=== PATIENT | female | born 1955 | race African-American/Black ===

== ENCOUNTER 2017-09-23 16:38 | Emergency (ER) | payer OTHER ==
[~2017-09-23] VITALS: Ht 154.9 cm; Wt 48.5 kg
[~2017-09-23 16:38] MED LIST: ADVAIR 250-501 EACH INH; AMLODIPINE BESYL5 MG PO; ASPIRIN EC81 MG PO; ATORVASTATIN CA40 MG PO; CIPRO500 MG PO; CLONAZEPAM1 MG PO; CLOPIDOGREL75 MG PO; CYMBALTA20 MG PO; ENALAPRIL MALEA20 MG PO; GLIPIZIDE10 MG PO; HYDROCHLOROTHIA25 MG PO; KLONOPIN1 MG PO; LEVAQUIN500 MG PO; LYRICA50 MG PO; METOPROLOL TART50 MG PO; NEXIUM40 MG PO; NORCO 10-325 T1 EACH PEG; OPANA10 MG PO; PRAVACHOL40 MG PO; PROVENTIL HFA6.7 GM; PYRIDIUM200 MG PO; SOMA350 MG PO; SPIRIVA18 MCG INH; SYMBICORT 16010.2 GM INH; TOPROL XL25 MG PO; TRAZODONE HCL50 MG PO; ULTRAM 50MG50 MG PO; ULTRAM50 MG PO; XOPENEX HFA15 GM
--- NOTE | 2017-09-23 17:36 | Diagnostic Imaging Report ---
PROCEDURE: Frontal and lateral views of the chest. COMPARISON: Patients [facility], DX, CHEST SINGLE (PORTABLE), 07/21/2017, 21:01. INDICATIONS: FLU LIKE. FINDINGS: Lines/tubes: None. Lungs: Bilateral perihilar peribronchial thickening and perihilar streak densities suggestive of a viral infection. No focal consolidation. Pleura: There is no pleural effusion or pneumothorax. Heart and mediastinum: The heart and the mediastinum are normal. Mild calcification of the aortic arch. Bones: No acute bony abnormality. IMPRESSION: 1. Bilateral perihilar peribronchial thickening and perihilar streak densities suggestive of a viral infection. No focal consolidation. Blas Marina M.D. Dictated by: Blsa Marina M.D. on 09/23/2017 at 17:45 Electronically approved by: Blas Marina M.D. on 09/23/2017 at 17:45
[2017-09-23] MEDS ORDERED: LORAZEPAM 1 MG TAB PO ONE (18:45)
[2017-09-23] MEDS ORDERED: LORAZEPAM 0.5 MG TAB PO ONE (19:00)
== END 2017-09-23 19:45 | disposition short-term general hospital (02) ==
LOC: ER 16:38
DX: R10.13 Epigastric pain (principal)
CPT/HCPCS: 71020; 87400

== ENCOUNTER 2018-06-12 12:22 | Emergency (ER) | payer MEDICARE, OTHER ==
[~2018-06-12] VITALS: Ht 154.9 cm; Wt 56.7 kg
[2018-06-12] MEDS ORDERED: SODIUM CHLORIDE 0.9% 1000ML 1,000 ML IV STA (12:37)
[2018-06-12] MEDS ORDERED: ASPIRIN 81 MG CHEW TAB PO ONE (12:45)
[2018-06-12] MEDS ORDERED: LORAZEPAM INJ 2 MG/ML VIAL IV ONE (13:00)
[2018-06-12 13:06] LABS: BASOPHILS % 0.4 % (0.0-1.0); EOSINOPHILS # (AUTO) 0.1 (0.0-0.4); EOSINOPHILS % 2.4 % (0.0-6.0); HEMATOCRIT 40.7 % (34.2-44.1); HEMOGLOBIN 12.4 g/dL (12.0-16.0); LYMPHOCYTES # (AUTO) 2.6 (1.0-3.2); LYMPHOCYTES % 47.1 % (18.0-39.1); MEAN CORPUSCULAR HEMOGLOBIN 26.9 pg (28-32); MEAN CORPUSCULAR HGB CONC 30.5 g/dL (31-35); MEAN CORPUSCULAR VOLUME 88.3 fL (81-99); MONOCYTES # (AUTO) 0.4 (0.2-0.8); MONOCYTES % 6.5 % (4.4-11.3); NEUTROPHILS # (AUTO) 2.4 (2.1-6.9); NEUTROPHILS % 43.4 % (38.7-80.0); PLATELET COUNT 152 x10e3/uL (140-360); RED BLOOD COUNT 4.61 x10e6/uL (3.6-5.1); RED CELL DISTRIBUTION WIDTH 13.3 % (11.7-14.4)
[2018-06-12] MEDS ORDERED: IPRATROPIUM BROMIDE 0.02% 2.5 ML NEB NEB ONE (13:15)
[2018-06-12] MEDS ORDERED: ALBUTEROL SULF 0.083% NEB SOLN 3 ML NEB NEB ONE (13:15)
--- NOTE | 2018-06-12 13:26 | Diagnostic Imaging Report ---
EXAM: XR CHEST 1 VIEW DATE: 06/12/2018 12:37 PM INDICATION: Shortness of breath COMPARISON: 07/21/2017, no report available FINDINGS: Lines and Tubes: None Heart and Mediastinum: No acute cardiomediastinal findings. Lungs and Pleura: No significant pleural effusion, pneumothorax, or focal consolidation. Nipple shadows incidentally noted. Bones and Soft Tissues: No acute findings. IMPRESSION: 1. No acute cardiopulmonary findings. Signed by: Dr. Michael Koehler MD on 06/12/2018 1:23 PM
[2018-06-12 13:41] LABS: ABG PH 7.39 (7.31-7.41)
[2018-06-12 13:42] LABS: ABG HCO3 32 mmol/L (23-28); ABG PCO2 52 mmHg (41-51); ABG PO2 93 mmHg (80-105)
[2018-06-12 14:02] LABS: ALANINE AMINOTRANSFERASE 20 IU/L (0-55); ALBUMIN 3.9 g/dL (3.5-5.0); ALBUMIN/GLOBULIN RATIO 1.1 (0.8-2.0); ALKALINE PHOSPHATASE 67 IU/L (40-150); ANION GAP 14.7 mmol/L (8-16); BLOOD UREA NITROGEN 22 mg/dL (7-26); BUN/CREATININE RATIO 23 (6-25); CALCIUM 9.8 mg/dL (8.4-10.2); CARBON DIOXIDE 31 mmol/L (22-29); CHLORIDE 101 mmol/L (98-107); CREATINE KINASE 73 IU/L (29-168); CREATININE, SERUM 0.96 mg/dL (0.57-1.11); EST GLOMERULAR FILTRATION RATE > 60 ML/MIN (60-); GLUCOSE 233 mg/dL (74-118); LIPASE 70 U/L (8-78); MAGNESIUM 1.6 MG/DL (1.3-2.1); POTASSIUM 3.7 mmol/L (3.5-5.1); SODIUM 143 mmol/L (136-145)
[2018-06-12 14:12] LABS: INR 0.87; PROTHROMBIN TIME 12.6 seconds (11.9-14.5)
[2018-06-12 14:13] LABS: PARTIAL THROMBOPLASTIN TIME 20.8 seconds (23.8-35.5)
[2018-06-12 14:24] LABS: THYROID STIMULATING HORMONE 0.465 uIU/mL (0.350-4.940)
[2018-06-12 14:36] LABS: B-TYPE NATRIURETIC PEPTIDE2 47.9 pg/mL (0-100)
[2018-06-12] MEDS ORDERED: METHYLPREDNISOLONE SOD SUCC 125 MG/2ML VIAL ONE (14:57)
[2018-06-12 15:26] VITALS: BP 122/74
[2018-06-12] MEDS ORDERED: METHYLPREDNISOLONE SOD SUCC 125 MG/2ML VIAL IV ONE (15:30)
--- OUTSIDE RECORDS SUMMARY | 2018-06-14 14:04 | XMS REPORT | Clinical Summary ---
Author Author [facility] Organization [facility] Address Unknown Phone Unavailable Care Team Providers Care Glue Drier Operator Name Role Phone Adrienne Chang MD PCP Allergies Active Allergy Reactions Severity Noted Date Comments Amoxicillin Anaphylaxis High 02/04/2018 Current Medications No known medications Active Problems Not on file Encounters Date Type Specialty Care Team Description 02/04/2018 Emergency Emergency Medicine Kalen Sierra Cough (Primary Dx); MD Aram Other chronic back pain; Ghassan Morales MD Hypotension, unspecified hypotension type; Panic attack; Coronary arteriosclerosis due to lipid rich plaque; Chronic obstructive pulmonary disease, unspecified COPD type; Dyslipidemia; Chronic hypertension; Multiple sclerosis; Type 2 diabetes mellitus with other specified complication, without long-term current use of insulin; Shortness of breath; Azotemia after 06/11/2017 Social History Tobacco Use Types Packs/Day Years Used Date Former Smoker Quit: 01/04/2015 Alcohol Use Drinks/Week oz/Week Comments Yes occasional Sex Assigned at Date Recorded Not on file Last Filed Vital Signs Vital Sign Reading Time Taken Blood Pressure 108/68 02/04/2018 5:15 PM CDT Pulse 80 02/04/2018 5:15 PM CDT Temperature 36.8 C (98.3 F) 02/04/2018 11:10 AM CDT Respiratory Rate 20 02/04/2018 5:15 PM CDT Oxygen Saturation 100% 02/04/2018 5:15 PM CDT Inhaled Oxygen - - Concentration Weight - - Height 154.9 cm (5' 1") 02/04/2018 11:13 AM CDT Body Mass Index - - Plan of Treatment Health Maintenance Due Date Last Done Comments DIABETIC FOOT EXAM 1963 DIABETIC RETINAL EYE EXAM 1963 URINE MICROALBUMIN 1963 CERVICAL CANCER SCREENING 1974 BREAST CANCER SCREENING 2003 COLON CANCER SCREENING 2003 SHINGRIX VACCINE (#1) 2003 ZOSTER VACCINE 2013 INFLUENZA VACCINE 03/30/2018 PNEUMOCOCCAL 2018 POLYSACCHARIDE VACCINE AGE 65 AND OVER PNEUMOCOCCAL-13 2018 Procedures Procedure Name Priority Date/Time Associated Diagnosis Comments ECG 12-LEAD STAT 02/04/2018 Results for this 2:39 PM CDT procedure are in the results section. ECG ED PRELIMINARY Routine 02/04/2018 Results for this INTERPRETATION 12:39 PM CDT procedure are in the results section. ZZESTIMATED GFR STAT 02/04/2018 Results for this 12:20 PM CDT procedure are in the results section. B NATRIURETIC PEPTIDE STAT 02/04/2018 Results for this 12:20 PM CDT procedure are in the results section. TROPONIN STAT 02/04/2018 Results for this 12:20 PM CDT procedure are in the results section. COMPREHENSIVE METABOLIC STAT 02/04/2018 Results for this PANEL 12:20 PM CDT procedure are in the results section. HC COMPLETE BLD COUNT STAT 02/04/2018 Results for this W/AUTO DIFF 12:20 PM CDT procedure are in the results section. XR CHEST 2 VW STAT 02/04/2018 Results for this 11:56 AM CDT procedure are in the results section. after 06/11/2017 Results * ECG 12 lead (02/04/2018 2:39 PM) Ventricular rate 65 [facility] Atrial rate 65 [facility] DE interval 154 [facility] QRSD interval 100 [facility] QT interval 400 [facility] QTC interval 416 [facility] P axis 1 81 [facility] QRS axis 1 78 [facility] T wave axis 262 [facility] EKG impression Normal sinus rhythm-ST & T [facility] wave abnormality, consider inferior ischemia-ST & T wave abnormality, consider anterolateral ischemia-Abnormal ECG-No previous ECGs available- Performing Organization Address City/State/Zipcode Phone Number [facility] M[facility] [address] [place] [address] * ECG ED Preliminary Interpretation - NOT AN ORDER (02/04/2018 12:39 PM) Narrative Performed At Ghassan Morales MD 02/10/20188:43 AM ECG ED Preliminary Interpretation - Not an Order Performed by: GHASSAN MORALES Authorized by: GHASSAN MORALES ECG reviewed by ED Physician in the absence of a vendor representatives: yes Interpretation: Interpretation: abnormal Rate: ECG rate:65 ECG rate assessment: normal Rhythm: Rhythm: sinus rhythm QRS: QRS axis:Normal QRS intervals:Normal ST segments: ST segments:Normal Comments: twi * Estimated GFR (02/04/2018 12:20 PM) GFR Non Af Amer 72 mL/min/1.73 m2 [facility] DEPARTMENT OF PATHOLOGY AND GENOMIC MEDICINE GFR Af Amer 87 mL/min/1.73 m2 [facility] DEPARTMENT OF Comment: PATHOLOGY AND Chronic kidney disease: <60 GENOMIC MEDICINE mL/min/1.73m2 Kidney failure: <15 mL/min/1.73m2 The estimated GFR is calculated from the IDMS-traceable Modification of Diet in Renal Disease Equation. The accuracy of the calculation is poor when the creatinine is normal. Calculated values >90 mL/min/1.73m2 are not reported. This equation has not been validated in children (<18 years), women, the elderly (>70 years), or ethnic groups other than Caucasians and Americans. Specimen Plasma specimen Performing Organization Address City/[facility]/[place] [address] PATHOLOGY AND [employer] MEDICINE * Troponin (02/04/2018 12:20 PM) Troponin <0.30 0.00 - 0.30 ng/mL [facility] DEPARTMENT OF Comment: PATHOLOGY AND 0.30 - 1.49 GENOMIC MEDICINE ng/mlMay indicate increased risk of acute coronary syndrome. >=1.5 ng/ml Consistent with acute myocardial infarction. The diagnostic value of a single normal or non-diagnostic result is questionable.Serial samples at 2-6 hour intervals are required to rule out acute myocardial injury. Specimen Plasma specimen Performing Organization Address City/State/Zipcode Phone Number [place] [phone] PATHOLOGY AND GENOMIC MEDICINE * CBC with platelet and differential (02/04/2018 12:20 PM) WBC 9.00 4.50 - 11.00 k/uL [facility] DEPARTMENT OF PATHOLOGY AND GENOMIC MEDICINE RBC 4.97 4.20 - 5.50 m/uL [facility] DEPARTMENT OF PATHOLOGY AND GENOMIC MEDICINE HGB 13.7 12.0 - 16.0 g/dL [facility] DEPARTMENT OF PATHOLOGY AND GENOMIC MEDICINE HCT 44.7 37.0 - 47.0 % [facility] DEPARTMENT OF PATHOLOGY AND GENOMIC MEDICINE MCV 89.9 82.0 - 100.0 fL [facility] DEPARTMENT OF PATHOLOGY AND GENOMIC MEDICINE MCH 27.6 27.0 - 34.0 pg [facility] DEPARTMENT OF PATHOLOGY AND GENOMIC MEDICINE MCHC 30.6 (L) 31.0 - 37.0 g/dL [facility] DEPARTMENT OF PATHOLOGY AND GENOMIC MEDICINE RDW - SD 46.6 37.0 - 55.0 fL [facility] DEPARTMENT OF PATHOLOGY AND GENOMIC MEDICINE MPV 10.6 8.8 - 13.2 fL [facility] DEPARTMENT OF PATHOLOGY AND GENOMIC MEDICINE Platelet count 208 150 - 400 k/uL [facility] DEPARTMENT OF PATHOLOGY AND GENOMIC MEDICINE Nucleated RBC 0.00 /100 WBC [facility] DEPARTMENT OF PATHOLOGY AND GENOMIC MEDICINE Neutrophils 64.2 39.0 - 69.0 % [facility] DEPARTMENT OF PATHOLOGY AND GENOMIC MEDICINE Lymphocytes 24.7 (L) 25.0 - 45.0 % [facility] DEPARTMENT OF PATHOLOGY AND GENOMIC MEDICINE Monocytes 8.0 0.0 - 10.0 % [facility] DEPARTMENT OF PATHOLOGY AND GENOMIC MEDICINE Eosinophils 0.9 0.0 - 5.0 % [facility] DEPARTMENT OF PATHOLOGY AND GENOMIC MEDICINE Basophils 0.3 0.0 - 1.0 % [facility] DEPARTMENT OF PATHOLOGY AND GENOMIC MEDICINE Immature granulocytes 1.9 (H)Comment: "Immature 0.0 - 1.0 % [facility] DEPARTMENT OF granulocytes" (promyelocytes, PATHOLOGY AND myelocytes, metamyelocytes) GENOMIC MEDICINE Specimen Blood Performing Organization Address City/[facility]/[place] [address] PATHOLOGY AND GENOMIC MEDICINE * B natriuretic peptide (02/04/2018 12:20 PM) BNP 24 0 - 100 pg/mL [facility] DEPARTMENT OF PATHOLOGY AND GENOMIC MEDICINE Specimen Blood Performing Organization Address City/[facility]/[place] [address] PATHOLOGY AND [facility] * Comprehensive metabolic panel (02/04/2018 12:20 PM) Sodium 144 135 - 148 mEq/L [facility] DEPARTMENT OF PATHOLOGY AND GENOMIC MEDICINE Potassium 4.0 3.5 - 5.0 mEq/L [facility] DEPARTMENT OF PATHOLOGY AND GENOMIC MEDICINE Chloride 101 98 - 112 mEq/L [facility] DEPARTMENT OF PATHOLOGY AND GENOMIC MEDICINE CO2 31 24 - 31 mEq/L [facility] DEPARTMENT OF PATHOLOGY AND GENOMIC MEDICINE Anion gap 12@ANIO 7 - 15 mEq/L [facility] DEPARTMENT OF PATHOLOGY AND GENOMIC MEDICINE BUN 28 (H) 8 - 23 mg/dL [facility] DEPARTMENT OF PATHOLOGY AND GENOMIC MEDICINE Creatinine 0.8 0.5 - 0.9 mg/dL [facility] DEPARTMENT OF PATHOLOGY AND GENOMIC MEDICINE Glucose 114 (H) 65 - 99 mg/dL [facility] DEPARTMENT OF PATHOLOGY AND GENOMIC MEDICINE Calcium 9.7 8.8 - 10.2 mg/dL [facility] DEPARTMENT OF PATHOLOGY AND GENOMIC MEDICINE Protein 7.2 6.3 - 8.3 g/dL [facility] DEPARTMENT OF Comment: PATHOLOGY AND [employer] GENOMIC MEDICINE 4.6-7.0 g/dL 1 week 4.4-7.6 g/dL 7 months-1year 5.1-7.3 g/dL 1-2 years5.6-7 .5 g/dL >3 years6.0-8 .0 g/dL 18-150 6.3-8.3 g/dL Albumin 3.7 3.5 - 5.0 g/dL [facility] DEPARTMENT OF PATHOLOGY AND GENOMIC MEDICINE A/G ratio 1.1 0.7 - 3.8 [facility] DEPARTMENT OF PATHOLOGY AND GENOMIC MEDICINE Alkaline phosphatase 65 35 - 104 U/L [facility] DEPARTMENT OF PATHOLOGY AND GENOMIC MEDICINE AST 31 10 - 35 U/L [facility] DEPARTMENT OF PATHOLOGY AND GENOMIC MEDICINE ALT 22 5 - 50 U/L [facility] DEPARTMENT OF PATHOLOGY AND GENOMIC MEDICINE Total bilirubin <0.2 0.0 - 1.2 mg/dL [facility] DEPARTMENT OF PATHOLOGY AND GENOMIC MEDICINE Specimen Plasma specimen Performing Organization Address City/[facility] Phone Number [facility] DEPARTMENT OF [address] [place] [address] PATHOLOGY AND GENOMIC MEDICINE * XR Chest 2 Vw (02/04/2018 11:56 AM) Narrative Performed At EXAMINATION:XR CHEST 2 VW RADIANT CLINICAL HISTORY:Cough COMPARISON:None IMPRESSION: Heart, mediastinum and lung bautista are normal. [facility]-[id number] Procedure Note Interface, Radiology Results Incoming - 02/04/2018 12:04 PM CDT EXAMINATION: XR CHEST 2 VW CLINICAL HISTORY: Cough COMPARISON: None IMPRESSION: Heart, mediastinum and lung bautista are normal. [facility]-[id number] Performing Organization Address City/State/Zipcode Phone Number [facility] [address] [place] [address] after 06/11/2017 Insurance Payer Benefit Subscriber ID Type Phone Address Plan / Group [employer] xxxxxxxxx HMO [employer] [place]
--- OUTSIDE RECORDS SUMMARY | 2018-06-14 14:05 | XMS REPORT ---
Author Author [facility] Address Unknown Phone Unavailable Care Team Providers Care Psychology Department Chair Name Role Phone Estiven MILLER Unavailable Unavailable Zonia AZEVEDO Unavailable Unavailable Chalo DAILEY Unavailable Unavailable NATALY HOUSTON Unavailable Unavailable Payers Payer Name Policy Type Policy Number Effective Date Expiration Date Problems This patient has no known problems. Allergies, Adverse Reactions, Alerts Allergy Name Allergy Type Status Severity Reaction(s) Onset Date Inactive Date Treating Clinician Comments amoxicillin DA Active U 2017-02-13 00:00:00 Medications This patient has no known medications. Results Test Description Test Time Test Comments Text Results Atomic Results Result Comments CHEST SINGLE (PORTABLE) 2018-06-12 13:22:00 [place] [address] Patient Name: VIRIDIANA ZAMBRANO MR #: [id number] : 1955 Age/Sex: 63/F Req #: [id number] Adm Physician: Ordered by: PIEDAD SPRINGER [employer] CONSULTANT Report #: [id number] Location: ER Room/Bed: Procedure: [id number] DX/CHEST SINGLE (PORTABLE) Exam Date: 06/12/18 Exam Time: 1204 REPORT STATUS: Signed EXAM: XR CHEST 1 VIEW DATE: 06/12/2018 12:37 PM INDICATION: Shortness of breath COMPARISON: 07/21/2017, no report available FINDINGS: Lines and Tubes: None Heart and Mediastinum: No acute cardiomediastinal findings. Lungs and Pleura: No significant pleural effusion, pneumothorax, or focal consolidation. Nipple shadows incidentally noted. Bones and Soft Tissues: No acute findings. IMPRESSION: 1. No acute cardiopulmonary findings. Signed by: Dr. Claire Koehler MD on 06/12/2018 1:23 PM Dictated By: CLAIRE KOEHLER MD 132 Transcribed By: SUE on 06/12/18 1323 COPY TO: PIEDAD SPR[employer]SULTANT CHEST 2 VIEWS [place] [address] Patient Name: VIRIDIANA ZAMBRANO MR #: [id number] : 1955 Age/Sex: 62/F Req #: [id number] Adm Physician: Ordered by: WILVER AZEVEDO MD Report #: [id number] Location: ER Room/Bed: Procedure: [id number] DX/CHEST 2 VIEWS Exam Date: 09/23/17 Exam Time: 1650 REPORT STATUS: Signed PROCEDURE: Frontal and lateral views of the chest. COMPARISON: [facility], DX, CHEST SINGLE (PORTABLE), 07/21/2017, 21:01. INDICATIONS: FLU LIKE. FINDINGS: Lines/tubes: None. Lungs: Bilateral perihilar peribronchial thickening and perihilar streak densities suggestive of a viral infection. No focal consolidation. Pleura: There is no pleural effusion or pneumothorax. Heart and mediastinum: The heart and the mediastinum are normal. Mild calcification of the aortic arch. Bones: No acute bony abnormality. IMPRESSION: 1. Bilateral perihilar peribronchial thickening and perihilar streak densities suggestive of a viral infection. No focal consolidation. Blas Fry M.D. Dictated by: Blas Fry M.D. on 08/31 at 17:45 Electronically approved by: Blas Fry M.D. on 09/23/2017 at 17:45 Dictated By: BECKY FRY MD, MD 44 Transcribed By: LILI on 09/23/171744 COPY TO: WILVER AZEVEDO MD CHEST SINGLE (PORTABLE) [place] [address] Patient Name: VIRIDIANA ZAMBRANO MR #: [id number] : 1955 Age/Sex: 62/F Req #: [id number] Adm Physician: Ordered by: MARLENA DAILEY MD Report #: [id number] Location: ER Room/Bed: Procedure: [id number] DX/CHEST SINGLE (PORTABLE) Exam Date: 07/21/17 Exam Time: 2104 REPORT STATUS: Signed EXAM: CHEST SINGLE (PORTABLE), AP 1 view DATE: 07/21/2017 8:13 PM Time stamp on exam: 2101 hours INDICATION: Shortness of breath COMPARISON: AP view of the chest July 04, [address] of the chest July 05, 2017 FINDINGS: LINES/TUBES: None LUNGS: Emphysematous changes slight increased reticulation in the left lung base. Nodular density projected over the left lung base consistent with nipple shadow. PLEURA: No effusions or pneumothorax. HEART AND MEDIASTINUM: Normal size and contour. BONES AND SOFT TISSUES: No acute findings. IMPRESSION: Emphysematous changes with possible superimposed pneumonia in the left lung base. Signed by: Dr. Bella Montoya M.D. on 07/21/2017 9:41 PM Dictated By: BELLA MONTOYA MD 40 Transcribed By: SUE on 07/21/172140 COPY TO: MARLENA DAILEY MD MRI BRAIN WOW [place] [address] Patient Name: VIRIDIANA ZAMBRANO MR #: [id number] : 1955 Age/Sex: 62/F Req #: [id number] Adm Physician: NATALY HOUSTON MD Ordered by: ROBE WEST MD Report #: [id number] Location: MED/SURG Room/Bed: [facility] Procedure: [id number] MRI/MRI BRAIN WOW Exam Date: 07/06/17 Exam Time: 0930 REPORT STATUS: Signed EXAMINATION: MRI of the brain with and without contrast . HISTORY:Multiple sclerosis, MS flare. COMPARISON:None available TECHNIQUE: Axial precontrast T1. Postcontrast sagittal high resolution thin cuts T2-FLAIR CUBE with axial and coronal reconstructions, axial DWI, T2, and high resolution thin cuts sagittal T1 CUBE with axial and coronal reconstructions. Intravenous contrast: 5 mL Gadavist . Image quality: Motion artifact limits evaluation of most of the sequences, in spite of sedation. FINDINGS: T2 lesions: Too numerous and too confluent to account T2 lesions located in the callososeptal interface, periventricular, wooten radiata and centrum semiovale, discrete lesions are also seen in the right thalamus, bilateral lentiform nuclei, and large confluent lesion in the robert, small discrete bilateral cerebellar lesions.. T1 lesions: None Enhancing lesions: None Corpus callosum volume: Normal. Brain volume: Normal for age. Other: No mass, hydrocephalus, hemorrhage, acute or chronic infarcts IMPRESSION: Very suboptimal study due to motion. 1. Too confluent and too numerous to count demyelinating T2 lesions. Grossly no enhancing lesions. Comparison to prior studies is advised. 2. No disproportionate brain or callosal atrophy. Signed by: Dr. Latoya Guan M.D. on 07/06/2017 10:52 AM Dictated By: LATOYA GUAN MD 105 Transcribed By: SUE on 07/06/17 105 COPY TO: ROBE WEST MD MRI SPINE CERVICAL WOW [place] [address] Patient Name: VIRIDIANA ZAMBRANO MR #: [id number] : 1955 Age/Sex: 62/F Req #: [id number] [facility] Physician: NATALY HOUSTON MD Ordered by: ROBE WEST MD Report #: [id number] Location: MED/SURG Room/Bed: [facility] Procedure: [id number] MRI/MRI SPINE CERVICAL WOW Exam Date: 07/06/17 Exam Time: 0930 REPORT STATUS: Signed EXAMINATION: MRI of the cervical spine HISTORY: Multiple sclerosis , MS flare COMPARISON: None available TECHNIQUE: Pre-contrast sagittal T1, T2, STIR; axial T1, T2.. Post contrast axial and sagittal T1. Intravenous Contrast: 5 mL Gadavist. Image quality : Motion artifact limits evaluation of most of the sequences, particularly axial T2. FINDINGS: Spinal Cord: Spinal cord size: Normal T1 lesions: None Enhancing lesions: None T2 lesions: None Others: Vertebrae: Normal alignment, height, signal intensity. Discs: No significant degenerative changes. Craniocervical junction: Normal. IMPRESSION: Suboptimal study due to motion, grossly no cervical spinal cord demyelinating T2 lesions. Comparison to prior studies is advised. Signed by: Dr. Latoya Guan M.D. on 07/06/2017 10:54 AM Dictated By: LATOAY GUAN MD 105 Transcribed By: SUE on 07/06/17 105 COPY TO: ROBE WEST MD CT BRAIN WO [place] [address] Patient Name: VIRIDIANA ZAMBRANO MR #: [id number] : 1955 Age/Sex: 62/F Req #: [id number] Adm Physician: Ordered by: CLARKE PRECIADO MD Report #: [id number] Location: ER Room/Bed: Procedure: [id number] CT/CT BRAIN WO Exam Date: Exam Time: REPORT STATUS: Signed EXAMINATION: Head CT without contrast. HISTORY:Weakness in right lower extremity, known history of multiple sclerosis. COMPARISON:CT brain from 11/30/2016. TECHNIQUE: Multidetector axial images were obtained from the foramen magnum to the vertex without contrast. The images were reconstructed using brain and bone algorithms. Thin section brain images were reformatted into coronal and sagittal planes. Intravenous contrast: None IMAGE QUALITY: Acceptable. FINDINGS: Skull/scalp: No abnormality. Parenchyma: Nonspecific bilateral frontoparietal patchy white matter hypodensity are likely related to small vessel ischemic changes and/or in combination with demyelinating plaques, given history of multiple sclerosis. No acute hemorrhage, mass or acute major vascular territorial infarct. Arteries: Atherosclerotic calcification in bilateral carotid siphon. Dural sinuses: No abnormal density suggestive of thrombosis. Ventricles: No hydrocephalus or displacement. Extra-axial spaces: No abnormal density. Brain volume: Normal for age. Craniocervical junction: No mass, Chiari malformation, or basilar invagination. Sella: No mass. Paranasal/mastoid sinuses: Imaged portions unremarkable. IMPRESSION: No acute intracranial abnormality, particularly no acute hemorrhage, mass or acute major vascular territorial infarct. Moderate supratentorial white matter microvascular ischemic changes and/or in combination with demyelinating disease, with given history of known multiple sclerosis. For better evaluation of demyelinating plaques consider follow-up with MRI of the brain with and without contrast. Signed by: Dr. Bethany Her M.D. on 07/05/2017 1:39 AM Dictated By: BETHANY HER MD 8 Transcribed By: SUE on 07/05/17138 COPY TO: CLARKE PRECIADO MD CT CHEST W [place] [address] Patient Name: VIRIDIANA ZAMBRANO MR #: [id number] : 1955 Age/Sex: 62/F Req #: [id number] Adm Physician: Ordered by: CLARKE PRECIADO MD Report #: [id number] Location: ER Room/Bed: Procedure: [id number] CT/CT CHEST W Exam Date: Exam Time: REPORT STATUS: Signed EXAM: CT CHEST W DATE: 07/05/2017 12:43 AM INDICATION: Chest heaviness, shortness of breath COMPARISON: 01/06/2017 TECHNIQUE: Multidetector CT scanning of the chest was performed. Coronal and sagittal multiplanar reformations were obtained. IV Contrast: 100 ml Isovue 300 FINDINGS: LUNGS AND PLEURA: Severe underlying emphysema. New predominant upper lobe and to a lesser extent left lower lobe groundglass opacity. Mild left basilar atelectasis or scarring. Stable 3 mm right lower lobe irregular opacity on image 85. New nonspecific 2 mm right upper lobe nodule in image 54. No effusions or pneumothorax. HEART, MEDIASTINUM, VESSELS: No evidence of acute pulmonary artery embolism to the segmental level. Main pulmonary artery is normal in caliber, 2.4 cm. Normal heart size with severe coronary artery calcification. Moderate aortic atherosclerotic disease. No adenopathy. UPPER ABDOMEN: Splenic calcifications. Otherwise unremarkable. MUSCULOSKELETAL: No acute findings. IMPRESSION: 1. No acute pulmonary embolism. 2. Emphysema with new mild groundglass opacity which may be infectious or inflammatory. 3. Nonspecific less than 4 mm right lung nodules. Consider 12 month follow-up. Signed by: Dr Bassam Chauhan MD on 07/05/2017 1:41 AM Dictated By: BASSAM CHAUHAN MD 0 Transcribed By: SUE on 07/05/17140 COPY TO: CLARKE PRECIADO MD CHEST [facility] [place] [address] Patient Name: VIRIDIANA ZAMBRANO MR #: [id number] : 1955 Age/Sex: 62/F Req #: [id number] Adm Physician: Ordered by: CLARKE PRECIADO MD Report #: [id number] Location: Room/Bed: Procedure: [id number] DX/CHEST SINGLE (PORTABLE) Exam Date: 07/04/17 Exam Time: 5 REPORT STATUS: Signed CHEST SINGLE (PORTABLE), 07/04/2017 10:21 PM Technique: CHEST SINGLE (PORTABLE) Comparison: 03/01/2017 Clinical history: Chest pain, shortness of breath Findings: Stable appearance of the heart, mediastinum, lungs and pleural spaces. Hyperinflation suggesting underlying emphysema. Impression: 1. Lines/Tubes: None 2. No acute abnormality. Signed by: Dr Bassam Chauhan MD on 07/04/2017 11:48 PM Dictated By: BASSAM CHAUHAN MD 47 Transcribed By: SUE on 07/04/172347 COPY TO: CLARKE PRECIADO MD
--- OUTSIDE RECORDS SUMMARY | 2018-06-14 14:05 | XMS REPORT ---
Author Author Blaine Aguila Organization [employer] Address Unknown Phone Unavailable Care Team Providers Care Finish Specialist Name Role Phone Blaine Aguila CP Unavailable Encounters Encounter Location Date Unknown Bl[place], [place] Apr 01, 2015 Unknown Blaine [place], [place] May 03, 2015 Problems Problem Type Condition ICD-9 Code Onset Dates Condition Status Problem Chronic pain syndrome 338.4 Active Problem COPD - Chronic airway obstruction, not elsewhere classified 496 Active Problem Multiple sclerosis 340 Active Problem Mitral valve disorders 424.0 Active Problem PVD (Peripheral Vascular Disease) 443.9 Active Problem Aortic valve disorders 424.1 Active Problem Diabetes Mellitus Type II 250.02 Active Problem Hyperlipidemia 272.4 Active Problem Cardiac Arrhythmia 427.9 Active Problem Hypertension 401.9 Active Medications Medication Code System Code Instructions Start Date End Date Status Dosage Symbicort MEDISPAN [id number] 160-4.5 MCG/ACT Active INHALE 2 PUFFS BY MOUTH ONCE DAILY NEEDED Social History Social History Element Qualifiers Date Reported Smoking: . Are you a: Former Smoker Quit smoking in 01/10 but used to smoke 4-5 ppd for >35 years. March 12, 2015 Alcohol: . social March 12, 2015 Summary Purpose [employer]ClinicalWorks Submission
--- OUTSIDE RECORDS SUMMARY | 2018-06-14 14:05 | XMS REPORT ---
Author Author Blaine Aguila Organization [employer] Address Unknown Phone Unavailable Care Team Providers Care Speech Assistant Name Role Phone Blaine Aguila CP Unavailable Encounters Encounter Location Date Unknown [place] Apr 01, 2015 Problems Problem Type Condition ICD-9 Code [...] Date End Date Status Dosage Symbicort MEDISPAN [id number] 160-4.5 MCG/ACT Inhalation Once a day as needed Active 2 puffs Social History Social History Element Qualifiers Date Reported Smoking: . Are you a: Former Smoker Quit smoking in 01/10 but used to smoke 4-5 ppd for >35 years. March 12, 2015 Alcohol: . social March 12, 2015 Summary Purpose [employer]Works Submission
--- OUTSIDE RECORDS SUMMARY | 2018-06-14 14:05 | XMS REPORT | Summary of Care ---
Author Author EMERALD Azevedo, INOCENCIA Organization Unknown Address Unknown Phone Unavailable Care Team Providers Care Vehicle Dismantler Name Role Phone EMERALD Azevedo, INOCENCIA Unavailable Unavailable BOOKER Azevedo, RUDY Unavailable Unavailable LUIS Azevedo, CELIA Unavailable Unavailable BOOKER CODY MA, RUDY Unavailable Unavailable SAKINA CODY MA, GERMAN Beck Unavailable Unavailable Unavailable Unavailable Functional Status Name Dates Details Functional status health issues are not documented Status: Name Dates Details Cognitive status health issues are not documented Status: Problems Name Dates Details Arthritis (716.90, M19.90) Status: Active Multiple sclerosis (340, G35) Status: Active Peripheral neuropathy, hereditary/idiopathic (356.9, G60.9) Status: Active Urine incontinence (788.30, R32) Status: Active Numbness and tingling (782.0, R20.0) Status: Active Need for immunization against influenza (V04.81, Z23) Status: Active Encounter for diabetic foot exam (250.00, E11.9) Status: Active Acute UTI (599.0, N39.0) Status: Active Hiatal hernia (553.3, K44.9) Status: Active Other polyp of colon (211.3, K63.5) Status: Active Low back pain (724.2, M54.5) Status: Active Allergic rhinitis (477.9, J30.9) Status: Active Heart disease (429.9, I51.9) Status: Active Moderate aortic regurgitation (424.1, I35.1) Status: Active Esophageal dysmotility (530.5, K22.4) Status: Active Malnutrition (263.9, E46) Status: Active Abnormal blood chemistry (790.6, R79.9) Status: Active Screening mammogram, encounter for (V76.12, Z12.31) Status: Active Osteoporosis screening (V82.81, Z13.820) Status: Active Post-menopausal (V49.81, Z78.0) Status: Active Diabetes mellitus (250.00, E11.9) Status: Active Depression (311, F32.9) Status: Active Chronic pain (338.29, G89.29) Status: Active Anxiety (300.00, F41.9) Status: Active Dyslipidemia (272.4, E78.5) Status: Active Essential hypertension (401.9, I10) Status: Active Hiatal hernia with GERD (530.81, K21.9) Status: Active Pulmonary emphysema (492.8, J43.9) Status: Active Stomach ulcer (531.90, K25.9) Status: Active COPD, 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 * Refills: 0 Active NexIUM 40 MG Oral Packet * Refills: 0 Active Fluticasone Propionate 50 MCG/ACT Nasal Suspension USE 2 SPRAYS IN EACH NOSTRIL TWICE DAILY. * Quantity: 1 Refills: 6 INOCENCIA CORBIN M.D. * Start : 08-Oct-2015 Active 16 GM Bottle ProAir HFA 108 (90 Base) MCG/ACT Inhalation Aerosol Solution INHALE 1 TO 2 PUFFS EVERY 4 TO 6 HOURS NEEDED. * Quantity: 1 Refills: 6 INOCENCIA CORBIN M.D. * Start : 29-Oct-2015 Active 8.5 GM Inhaler Spiriva HandiHaler 18 MCG Inhalation Capsule INHALE THE CONTENTS OF 1 CAPSULE VIA INHALATION DEVICE EVERY DAY * Quantity: 90 Refills: 6 INOCENCIA CORBIN M.D. * Start : 19-Oct-2017 Active Albuterol Sulfate 0.63 MG/3ML Inhalation Nebulization Solution USE 1 UNIT DOSE IN NEBULIZER EVERY 4 TO 6 HOURS NEEDED. * Quantity: 1 Refills: 6 INOCENCIA CORBIN M.D. * Start : 29-Oct-2015 Active 3 ML Plas Cont (30 Plas Conts) Hydrocodone-Acetaminophen 10-325 MG Oral Tablet TAKE 1 TABLET EVERY 12 HOURS NEEDED as needed-pain clinic * Quantity: 28 Refills: 0 Active ClonazePAM 0.5 MG Oral Tablet TAKE 1 TABLET BY MOUTH EVERY 8 hours-pain clinic * Quantity: 30 Refills: 2 SATTAR M.D., RUDY * Start : 30-Jun-2016 Active AmLODIPine Besylate 10 MG Oral Tablet TAKE 1 TABLET BY MOUTH ONCE DAILY * Quantity: 90 Refills: 0 SATTAR M.D., RUDY * Start : 06-Oct-2016 Active Combivent Respimat 20-100 MCG/ACT Inhalation Aerosol Solution * Refills: 0 * Start : 08-Oct-2016 Active Cheratussin AC 100-10 MG/5ML Oral Syrup * Refills: 0 Active Symbicort 160-4.5 MCG/ACT Inhalation Aerosol INHALE 2 PUFFS TWICE DAILY. RINSE MOUTH AFTER USE. * Quantity: 1 Refills: 6 EMERALD M.D., PRO * Start : 08-Oct-2016 Active 6 GM Inhaler Montelukast Sodium 10 MG Oral Tablet TAKE 1 TABLET BY MOUTH AT BEDTIME * Quantity: 30 Refills: 6 EMERALD Alea.Hai.INOCENCIA * Start : 14-Dec-2017 Active GlipiZIDE 5 MG Oral Tablet TAKE 1/2 TABLET BY MOUTH EVERY MORNING BEFORE BREAKFAST * Quantity: 4 Refills: 0 SATTAR M.D., RUDY * Start : 20-May-2017 Active Atorvastatin Calcium 40 MG Oral Tablet TAKE 1 TABLET BY MOUTH EVERY NIGHT AT BEDTIME * Quantity: 7 Refills: 0 SATTAR M.D., RUDY * Start : 17-Jun-2017 Active Cymbalta 60 MG Oral Capsule Delayed Release Particles TAKE 1 CAPSULE DAILY-pain clinic * Refills: 0 SATTAR M.D., RUDY * Start : 15-Jan-2017 Active Neurontin 300 MG Oral Capsule TAKE 1 CAPSULE BY MOUTH twice TIMES DAILY-pain clinic * Refills: 0 SATTAR M.D., RUDY * Start : 04-Jun-2017 Active Sulindac 150 MG Oral Tablet TAKE 1 TABLET EVERY 12 HOURS WITH FOOD. pain clinic * Refills: 0 SATTAR M.D., RUDY * Start : 04-Jun-2017 Active Plaquenil 200 MG Oral Tablet TAKE 1 TABLET DAILY.pain clinic * Refills: 0 SATTAR M.D., RUDY * Start : 04-Jun-2017 Active Symbicort 160-4.5 MCG/ACT Inhalation Aerosol INHALE 2 PUFFS TWICE DAILY. RINSE MOUTH AFTER USE. * Quantity: 1 Refills: 3 CELIA SMITH M.D. * Start : 21-Sep-2017 Active 10.2 GM Inhaler Allergies and Adverse Reactions Name Dates Details Amoxicillin CAPS (Allergy) Reaction: Shortness of breath Status: Active Past Medical History Name Dates Details Personal history of asthma (V12.69, Z87.09) Status: Resolved Procedures Procedure Dates Details History of Complete Colonoscopy For Polyp Removal Completed Immunization Name Dates Details Pneumococcal polysaccharide vaccine, 23 valent Lot #: [id number] on: 27-Nov-2015 Fluzone 9 MCG/STRAIN CARLOS Lot #: [id number] on: 27-Nov-2015 Influenza Lot #: [id number] on: 06-Oct-2016 Fluzone Quadrivalent 0.5 ML Intramuscular Suspension Prefilled Syringe Lot #: [id number] on: 21-Sep-2017 Family History Name Dates Details Family history of Diabetes Mellitus (V18.0) Comments: Family History Status: Active Family history of Multiple Sclerosis Comments: Family History Status: Active Family history of Hypertension (V17.49) Comments: Family History Status: Active Family history of Reported Family History Of Heart Disease Comments: Family History Status: Active Family history of Stroke Syndrome (V17.1) Comments: Family History Status: Active Name Dates Details Family history of Diabetes Mellitus (V18.0) Status: Active Family history of Renal Failure Status: Active Name Dates Details Family history of Cardiac Failure Status: Active Social History Name Dates Details - Status: Name Dates Details Current every day smoker Current every day smoker Vital Signs Date Test Result Details No Known Vitals to report Results Date Description Value Details Results not documented Plan of Care Name Dates Details Planned Observations Planned Goals not documented Planned Encounters Appointment; CELIA SMITH M.D. On: 21-Dec-2017 13:00 Interventions Provided Medication Changes* Montelukast Sodium 10 MG Oral Tablet - Renew Instructions Name Dates Details Instructions not documented Encounters Appointment; INOCENCIA CORBIN M.D. Encounter Diagnosis: Problem not documented On: 24-Dec-2015 9:30 Appointment; INOCENCIA CORBIN M.D. Encounter Diagnosis: Problem not documented On: 31-Dec-2015 13:30 Appointment; LAURA MARTINI M.D. Encounter Diagnosis: Problem not documented On: 01-Jan-2016 12:15 Appointment; INOCENCIA CORBIN M.D. Encounter Diagnosis: Problem not documented On: 31-Mar-2016 9:30 Appointment; ELAINA LALA M.D. Encounter Diagnosis: Problem not documented On: 05-May-2016 14:15 Appointment; KHANG KAUR M.D. Encounter Diagnosis: Problem not documented On: 06-May-2016 11:30 Appointment; KHANG KAUR M.D. Encounter Diagnosis: Problem not documented On: 08-Jun-2016 12:00 Appointment; KHANG KAUR M.D. Encounter Diagnosis: Problem not documented On: 10-Aug-2016 10:00 [facility] Encounter Diagnosis: Problem not documented On: 21-Sep-2016 11:45 Appointment; RUDY CELESTE M.D. Encounter Diagnosis: Problem not documented On: 06-Oct-2016 13:30 Appointment; INOCENCIA CORBIN M.D. Encounter Diagnosis: Problem not documented On: 08-Oct-2016 11:00 Appointment; KHANG KAUR M.D. Encounter Diagnosis: Problem not documented On: 02-Nov-2016 8:30 Appointment; RUDY CELESTE M.D. Encounter Diagnosis: Problem not documented On: 03-Nov-2016 9:30 Appointment; BLOSSOM ALCAZAR M.D. Encounter Diagnosis: Problem not documented On: 18-Nov-2016 9:00 Appointment; KHANG KAUR M.D. Encounter Diagnosis: Problem not documented On: 01-Dec-2016 9:00 Appointment; JESSICA [address] Encounter Diagnosis: Problem not documented On: 01-Dec-2016 10:00 Appointment; INOCENCIA CORBIN M.D. Encounter Diagnosis: Problem not documented On: 08-Dec-2016 11:30 Appointment; INOCENCIA CORBIN M.D. Encounter Diagnosis: Problem not documented On: 17-Dec-2016 11:30 Appointment; JESSICA VEN[address] RD Encounter Diagnosis: Problem not documented On: 17-Dec-2016 13:00 Appointment; TIERRA ARNETT LCSW Encounter Diagnosis: Problem not documented On: 24-Dec-2016 11:00 Appointment; RUDY CELESTE M.D. Encounter Diagnosis: Problem not documented On: 15-Jan-2017 10:00 Appointment; TIERRA ARNETT LCSW Encounter Diagnosis: Problem not documented On: 18-Jan-2017 10:00 Appointment; TIERRA ARNETT LCSW Encounter Diagnosis: Problem not documented On: 08-Feb-2017 11:00 Appointment; KHANG KAUR M.D. Encounter Diagnosis: Problem not documented On: 16-Feb-2017 13:30 Appointment; RUDY CELESTE M.D. Encounter Diagnosis: Problem not documented On: 19-Apr-2017 9:30 Appointment; CELIA SMITH M.D. Encounter Diagnosis: Problem not documented On: 21-Sep-2017 13:20
--- OUTSIDE RECORDS SUMMARY | 2018-06-14 14:05 | XMS REPORT | Continuity of Care Document ---
Author Author [facility] Interface Address Unknown Phone Unavailable Problems Problem Status Onset Date Classification Date Reported Comments Source Chronic pain syndrome Active Problem 05/04/2015 Blaine Aguila COPD - Chronic airway obstruction, not elsewhere classified Active Problem 05/04/2015 Blaine Aguila Multiple sclerosis Active Problem 05/04/2015 Blaine Aguila Mitral valve disorders Active Problem 05/04/2015 Blaine Aguila PVD Active Problem 05/04/2015 Blaine Aguila Aortic valve disorders Active Problem 05/04/2015 Blaine Aguila Diabetes Mellitus Type II Active Problem 05/04/2015 Blaine Aguila Hyperlipidemia Active Problem 05/04/2015 Blaine Aguila Cardiac Arrhythmia Active Problem 05/04/2015 Blaine Aguila Hypertension Active Problem 05/04/2015 Blaine Aguila Other and unspecified hyperlipidemia Active Problem 09/21/2017 Blaine Aguila Essential hypertension Active Problem 09/21/2017 Blaine Aguila DM w/o complication type II, uncontrolled Active Problem 09/21/2017 Blaine Aguila Tricuspid regurgitation Active Problem 09/21/2017 Blaine Aguila Bowel perforation Active Problem 09/21/2017 Blaine Aguila Mitral regurgitation Active Problem 09/21/2017 Blaine Aguila Peripheral vascular disease Active Problem 09/21/2017 Blaine Aguila Cardiac arrhythmia Active Problem 09/21/2017 Blaine Aguila Acute bronchitis Active Problem 09/21/2017 Blaine Aguila DM Active Problem 09/21/2017 Blaine Aguila Carotid stenosis Active Problem 09/21/2017 Blaine Aguila Aortic regurgitation Active Problem 09/21/2017 Blaine Aguila Chest pain Active Problem 09/21/2017 Blaine Aguila Dyspnea on exertion Active Problem 09/21/2017 Blaine Aguila Multiple sclerosis Active Problem 09/21/2017 Blaine Aguila Dizziness Active Problem 09/21/2017 Blaine Aguila Chronic pain syndrome Active Problem 09/21/2017 Blaine Aguila COPD Active Problem 09/21/2017 Blaine Aguila Aortic valve disorder Active Problem 10/05/2015 Blaine Aguila Medications Medication Details Route Status Patient Instructions Ordering Provider Order Date Source Aspirin 1 tablet Orally Active 81 MG Orally Once a day Aguila 05/31/2015 Blaine Aguila Advair Diskus 1 puff Inhalation Active 250-50 MCG/DOSE Inhalation Twice a day Aguila 04/02/2014 Blaine Aguila Symbicort INHALE 2 PUFFS BY MOUTH ONCE DAILY NEEDED NA Active 160-4.5 MCG/ACT Mingo Aguila Amlodipine Besylate 1 tablet Orally Active 2.5 MG Orally Once a day Mingo Aguila Symbicort 2 puffs Inhalation Active 160-4.5 MCG/ACT Inhalation Twice a day Mingo Aguila Amlodipine Besylate TAKE 1 TABLET BY MOUTH DAILY NA Active 2.5 Mingo Aguila Enalapril Maleate 2 tablets Orally Active 20 MG Orally Once a day Mingo Aguila Spiriva HandiHaler 1 capsule Inhalation Active 18 MCG Inhalation Once a day Mingo Aguila Nexium 1 capsule Orally Active 40 MG Orally Once a day Mingo Aguila Clonazepam 1 tablet Orally Active 1 MG Orally Twice a day Mingo Aguila Pravastatin Sodium 1 tablet Orally Active 40 MG Orally Once a day Mingo Aguila Albuterol-Ipratropium 3 ml Inhalation Active 2.5-0.5 MG/3ML Inhalation Four times a day Mingo Aguila Benadryl Allergy 1 capsule as needed Orally Active 25 MG Orally every 6 hrs Mingo Aguila Metoprolol Succinate ER 1 tablet Orally Active 25 MG Orally Once a day Mingo Aguila Lyrica 1 capsule Orally Active 50 MG Orally Three times a day Mingo Aguila Allergies, Adverse Reactions, Alerts Substance Category Reaction Severity Reaction type Status Date Reported Comments Source Amoxicillin Adverse Reaction Info Not Available Adverse Reaction Active 09/21/2016 Blaine Aguila Immunizations Immunization Date Given Site Status Last Updated Comments Source Results Order Name Results Value Reference Range Date Interpretation Comments Source Vital Signs Vital Sign Value Date Comments Source Weight 103 09/21/2016 Blaine Aguila Heart Rate 78 09/21/2016 Blaine Aguila Diastolic (mm Hg) 82 09/21/2016 Blaine Aguila Systolic (mm Hg) 148 09/21/2016 Blaine Aguila Encounters Location Location Details Encounter Type Encounter Number Reason For Visit Attending Provider ADM Date DC Date Status Source Blaine Aguila [place], [place] Unknown [id number] 04/01/2015 04/01/2015 Blaine Aguila MD, [place] Unknown [id number] 04/01/2015 04/01/2015 Blaine Aguila MD, [place] Unknown [id number] 04/01/2015 04/01/2015 Blaine Aguila MD, [place] Unknown [id number] 05/03/2015 05/03/2015 Blaine Aguila MD, [place] Unknown [id number] 05/03/2015 05/03/2015 Blaine Aguila MD, PA Unknown [id number] 09/13/2015 09/13/2015 Blaine Aguila Procedures Procedure Code Date Perfomer Comments Source
--- OUTSIDE RECORDS SUMMARY | 2018-06-14 14:05 | XMS REPORT ---
Author Author Blaine Aguila Organization [employer] Address Unknown Phone Unavailable Care Team Providers Care Lead Consultant Name Role Phone Blaine Aguila CP Unavailable Encounters Encounter Location Date Unknown Blaine Aguila MD, [place] Apr 01, 2015 Unknown Blaine Aguila MD, PA May 03, 2015 Unknown Blaine Aguila MD, [place] Sep 13, 2015 Problems Problem Type Condition ICD-9 Code Onset Dates Condition Status Problem Chest pain R07.9 Active Problem Dizziness R42 Active Problem Dyspnea on exertion R06.09 Active Problem Peripheral vascular disease I73.9 Active Problem Cardiac arrhythmia I49.9 Active Problem Aortic valve disorder I35.9 Active Problem Other and unspecified hyperlipidemia E78.5 Active Problem COPD (chronic obstructive pulmonary disease) J44.9 Active Problem Essential hypertension I10 Active Problem DM w/o complication type II, uncontrolled E11.65 Active Problem Carotid stenosis I65.29 Active Problem Aortic regurgitation I35.1 Active Problem Multiple sclerosis G35 Active Problem Chronic pain syndrome G89.4 Active Social History Social History Element Qualifiers Date Reported Smoking: . Are you a: Former Smoker Quit smoking in 01/10 but used to smoke 4-5 ppd for >35 years. Sep 12, 2015 Alcohol: . social Sep 12, 2015 Summary Purpose eClinicalWorks Submission
--- OUTSIDE RECORDS SUMMARY | 2018-06-14 14:05 | XMS REPORT ---
Author Author Blaine Aguila Organization [employer] Address Unknown Phone Unavailable Care Team Providers Care 3D Artist Name Role Phone Blaine Aguila CP Unavailable Allergies No Known Allergies Problems Problem Type Condition Code Onset Dates Condition Status Problem Chest pain R07.9 Active Problem Dyspnea on exertion R06.09 Active Problem Peripheral vascular disease I73.9 Active Problem Tricuspid regurgitation I07.1 Active Problem Bowel perforation K63.1 Active Problem Mitral regurgitation I34.0 Active Problem COPD (chronic obstructive pulmonary disease) J44.9 Active Problem Dizziness R42 Active Problem Acute bronchitis J20.9 Active Problem DM (diabetes mellitus) E11.9 Active Problem Carotid stenosis I65.29 Active Problem Aortic regurgitation I35.1 Active Problem DM w/o complication type II, uncontrolled E11.65 Active Problem Chronic pain syndrome G89.4 Active Problem Cardiac arrhythmia I49.9 Active Problem Multiple sclerosis G35 Active Problem Other and unspecified hyperlipidemia E78.5 Active Problem Essential hypertension I10 Active Medications Medication Code System Code Instructions Start Date End Date Status Dosage Amlodipine Besylate [facility] [id number] 2.5 Active TAKE 1 TABLET BY MOUTH DAILY Results No Known Results Summary Purpose eClinicalWorks Submission
--- OUTSIDE RECORDS SUMMARY | 2018-06-14 14:05 | XMS REPORT ---
Author Author Blaine Aguila Organization [employer] Address Unknown Phone Unavailable Care Team Providers Care Blood Tester Name Role Phone Blanie Aguila CP Unavailable Allergies No Known Allergies Problems Problem Type Condition Code Onset Dates Condition Status Problem Other and unspecified hyperlipidemia E78.5 Active Problem Essential hypertension I10 Active Problem DM w/o complication type II, uncontrolled E11.65 Active Problem Tricuspid regurgitation I07.1 Active Problem Bowel perforation K63.1 Active Problem Mitral regurgitation I34.0 Active Problem Peripheral vascular disease I73.9 Active Problem Cardiac arrhythmia I49.9 Active Problem Acute bronchitis J20.9 Active Problem DM (diabetes mellitus) E11.9 Active Problem Carotid stenosis I65.29 Active Problem Aortic regurgitation I35.1 Active Assessment Essential hypertension I10 Active Problem Chest pain R07.9 Active Problem Dyspnea on exertion R06.09 Active Problem Multiple sclerosis G35 Active Problem Dizziness R42 Active Problem Chronic pain syndrome G89.4 Active Problem COPD (chronic obstructive pulmonary disease) J44.9 Active Medications Medication Code System Code Instructions Start Date End Date Status Dosage Amlodipine Besylate [facility] [address]-24 2.5 MG Orally Once a day Active 1 tablet Results No Known Results Summary Purpose eClinicalWorks Submission
== END 2018-06-12 15:27 | disposition home or self-care (01) ==
LOC: ER 12:22
DX: R06.00 Dyspnea, unspecified (principal); J45.41 Moderate persistent asthma with (acute) exacerbation
CPT/HCPCS: 36415; 71045; 80053; 82550; 82553; 82805; 83605; 83690; 83735; 83880; 84443; 84484; 85025; 85610; 85730; 87040; 87400; 93005; 94640 ×2; 99284; J2930; J7030; 36600; 81001; 87086